=== PATIENT | male | born 1980 | race Two or more races ===

== ENCOUNTER 2022-05-21 15:49 | Emergency (ER) | payer OTHER ==
[~2022-05-21] VITALS: Ht 180.3 cm; Wt 90.7 kg
[2022-05-21 16:45] VITALS: BP 129/76
--- NOTE | 2022-05-21 17:12 | NUR ---
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
[2022-05-21] MEDS ORDERED: IBUPROFEN 600 MG TABLET PO ONE (17:30)
[2022-05-21] MEDS ORDERED: IBUPROFEN 600 MG TABLET ONE (17:38)
--- NOTE | 2022-05-21 17:43 | NUR ---
MOTRIN PO GIVEN INDICATED, ANGIE WELL.
[2022-05-21] MEDS ORDERED: NAPR500T6 PO (18:53)
--- NOTE | 2022-05-21 19:06 | NUR ---
Patient discharged to home in stable condition. Written and verbal after care instructions given. Patient verbalizes understanding of instruction.
== END 2022-05-21 19:08 | disposition home or self-care (01) ==
LOC: ER 15:56
DX: M51.34 Other intervertebral disc degeneration, thoracic region (principal); Z79.1 Long term (current) use of non-steroidal anti-inflammatories (NSAID)
CPT/HCPCS: 71045-TC; 72074-TC